=== PATIENT | female | born 1980 | race Caucasian/White ===

== ENCOUNTER 2016-10-03 06:51 | Emergency (ER) | payer OTHER ==
[~2016-10-03] VITALS: Ht 167.6 cm; Wt 54.4 kg
[2016-10-03 06:55] VITALS: BP 127/76
[2016-10-03] MEDS ORDERED: Morphine Sulfate 4mg/ml Inj IVP ONE ×3 (07:00→13:30)
[2016-10-03] MEDS ORDERED: ceFAZolin 2gm/50ml Premix 50 ML IVPB ONE (07:30)
[2016-10-03 07:31] LABS: BASOPHILS % (AUTO) 0.9 % (0.0-2.0); EOSINOPHILS % (AUTO) 2.2 % (0.0-3.0); LYMPHOCYTES % (AUTO) 15.1 % (20.0-45.0); MEAN CORPUSCULAR HEMOGLOBIN 35.1 PG (27.0-31.0); MEAN CORPUSCULAR HGB CONC 36.4 G/DL (32.0-36.0); MEAN CORPUSCULAR VOLUME 96 FL (80-99); MEAN PLATELET VOLUME 8.8 FL (6.5-10.1); MONOCYTES % (AUTO) 4.5 % (1.0-10.0); NEUTROPHILS % (AUTO) 77.3 % (45.0-75.0); PLATELET COUNT 219 K/UL (150-450); RED BLOOD COUNT 4.38 M/UL (4.20-5.40); RED CELL DISTRIBUTION WIDTH 10.7 % (11.6-14.8); WHITE BLOOD COUNT 7.9 K/UL (4.8-10.8)
[2016-10-03 07:38] LABS: INR 1.1 (0.9-1.1)
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
[2016-10-03] MEDS ORDERED: Bacitracin Oint 15gm Tube TOPIC ONE (08:00)
[2016-10-03 09:09] LABS: ALANINE AMINOTRANSFERASE 17 U/L (3-33); ALBUMIN/GLOBULIN RATIO 1.4 (1.0-2.7); ANION GAP 14 (5-15); ASPARTATE AMINO TRANSFERASE 32 U/L (5-40); CALCIUM 9.5 mg/dL (8.6-10.2); CARBON DIOXIDE 24 mEQ/L (20-30); CHLORIDE 100 mEQ/L (98-107); GLOMERULAR FILTRATION RATE > 60 mL/min (>60); HEMOLYSIS 43; POTASSIUM 3.6 mEQ/L (3.4-4.9); SODIUM 138 mEQ/L (135-145); TOTAL PROTEIN 7.6 g/dL (6.6-8.7)
[2016-10-03 09:25] VITALS: BP 113/61
[2016-10-03 11:00] VITALS: BP 133/72
--- NOTE | 2016-10-03 11:35 | Diagnostic Imaging Report ---
Indication: Pain right ankle Comparison: None Findings: 3 views of the right ankle obtained. There is evidence of a severe ankle fracture. Fractures of the medial malleolus and lateral malleolus noted. There is malalignment of the ankle mortise. There is distraction of the lateral aspect of the tibiotalar joint with resultant inversion angulation. Impression: Acute fractures as described above
--- NOTE | 2016-10-03 11:38 | Diagnostic Imaging Report ---
Indication: left ankle pain Comparison: None Findings: 3 views of the left ankle and 2 views of the left tibia and fibula obtained. There is a severe, comminuted moderately displaced fracture of the distal tibia shaft and fibula. This is above the malleoli. The fracture is open with soft tissue air extending to the fracture site from the medial aspect. There is also extensive soft tissue air extending cephalad. No proximal fractures are identified. Impression: Severe, open diaphyseal fractures of the distal tibia and fibula.
[2016-10-03] MEDS ORDERED: oxyCODONE HCL/Acetaminophen 5/325mg ORAL ONE (12:15)
[2016-10-03 13:01] VITALS: BP 133/72
--- NOTE | 2016-10-04 09:04 | Diagnostic Imaging Report ---
Indication: Chest pain. Chest trauma, Technique: Continuous helical transaxial imaging of the chest was obtained from the thoracic inlet to the upper abdomen after intravenous nonionic contrast administration. Coronal 2-D reformats were also obtained. Total Dose length Product (DLP): [address] Dose Index Volume (CTDIvol): 0.15, 8.11, 24.33, 18.38, 17.67 mGy Comparison: none Findings: There is a small amount of subcapsular blood surrounding the spleen. Ill-defined focus of low attenuation in the midpole of the spleen extending to the splenic hilum noted. Findings consistent with splenic laceration. Mild subsegmental atelectasis noted at the left lung base. The lungs are clear otherwise. There is no pneumothorax, pleural fluid/blood identified. The mediastinum appears clear. The major vessels of the heart appear unremarkable. There is no evidence of osseous injury demonstrated on this study. Impression: Splenic laceration with small subcapsular hematoma, likely grade 1 to 2 (AAST criteria). No evidence of trauma involving the chest Mild left basal atelectasis. The CT scanner at [facility] is accredited by the [employer] and the scans are performed using dose optimization techniques as appropriate to a performed exam including Automatic Exposure control.
--- NOTE | 2016-10-04 09:05 | Diagnostic Imaging Report ---
Indication: Pain Comparison: None Findings: 2 views of the left foot were obtained. No acute fractures, malalignment, erosions or periostitis are identified. Bone mineralization is within normal limits. Soft tissues are unremarkable. There is a fracture of the distal fibula. Please refer to the ankle series. Impression: No acute findings in the foot
--- NOTE | 2016-10-04 09:05 | Diagnostic Imaging Report ---
Indication: pain Findings: 3 views of the right hand were obtained. Acute fractures at the base of the third and fourth metacarpals demonstrated. The fractures appear nondisplaced. There is no soft tissue swelling is appreciated on this exam. Impression: Acute fractures third and fourth metacarpal base
--- NOTE | 2016-10-04 09:06 | Diagnostic Imaging Report ---
Refer to the left ankle series.
== END 2016-10-03 13:01 | disposition short-term general hospital (02) ==
LOC: EDBD 06:51 → EMR 07:20
DX: S82.51XA Displaced fracture of medial malleolus of right tibia, initial encounter for closed fracture (principal); S82.61XA Displaced fracture of lateral malleolus of right fibula, initial encounter for closed fracture; S62.304A Unspecified fracture of fourth metacarpal bone, right hand, initial encounter for closed fracture; S62.302A Unspecified fracture of third metacarpal bone, right hand, initial encounter for closed fracture; S80.212A Abrasion, left knee, initial encounter; S80.211A Abrasion, right knee, initial encounter; S36.039A Unspecified laceration of spleen, initial encounter; J98.11 Atelectasis; R07.9 Chest pain, unspecified; V43.52XA Car driver injured in collision with other type car in traffic accident, initial encounter; Y93.9 Activity, unspecified; Y92.410 Unspecified street and highway as the place of occurrence of the external cause
CPT/HCPCS: 29125; 29515; 36415; 71260; 73130; 73590; 73610; 73630; 80053; 85025; 85610; 85730; 96360; 96361; 96374; 96375; 99285; J0690; J2270; J2405; Q9967